=== PATIENT | male | born 1975 | race Caucasian/White ===

== ENCOUNTER 2017-02-20 08:20 | Day surgery (SDC) | payer MEDICAID ==
[2017-02-20] MEDS ORDERED: TETRACAINE 0.5% OPHTH 1 DOSE AFFEYE ONE ×2 (09:33→12:21)
[2017-02-20] MEDS ORDERED: VIGAMOX 0.5% OPHTH 1 DOSE AFFEYE ONE ×5 (09:35→12:50)
[2017-02-20] MEDS ORDERED: NS 500 ML IV 500 ML IV ONE ×2 (09:39→11:18)
[2017-02-20] MEDS ORDERED: PROLENSA OPHTH 1 DOSE AFFEYE ONE (09:47)
[2017-02-20] MEDS ORDERED: VISINE-A OPHTH 1 DOSE AFFEYE ONE (09:49)
[2017-02-20] MEDS ORDERED: MYDRIACIL OPHTH 1 DOSE AFFEYE ONE ×4 (09:50→09:59)
[2017-02-20] MEDS ORDERED: CYCLOGYL 1% OPHTH 1 DOSE OP ONE ×4 (09:50→09:59)
[2017-02-20] MEDS ORDERED: AK-DILATE 2.5% OPHTH 1 DOSE OP ONE ×4 (09:50→09:59)
[2017-02-20] MEDS ORDERED: QUELICIN (OR ANECTINE) ONE (10:28)
[2017-02-20] MEDS ORDERED: SUPRANE IN ONE (10:28)
[2017-02-20] MEDS ORDERED: DIPRIVAN VIAL ONE (10:28)
[2017-02-20] MEDS ORDERED: VERSED ONE (10:28)
[2017-02-20] MEDS ORDERED: BREVIBLOC ONE (10:28)
[2017-02-20] MEDS ORDERED: FENTANYL INJ 100 mcg ONE ×2 (11:15→12:42)
[2017-02-20] MEDS ORDERED: NS 1/2 1000 ML IV 1,000 ML IV ONE ×2 (11:16→11:17)
[2017-02-20] MEDS ORDERED: BETADINE OPHTH SOLN 5% EACHEYE ONE (12:10)
[2017-02-20] MEDS ORDERED: ADRENALINE CHL INJ IJ ONE (12:31)
[2017-02-20] MEDS ORDERED: XYLOCAINE-MPF 1% IJ ONE (12:31)
[2017-02-20] MEDS ORDERED: BSS OPHTH (PLAIN) 500 ML with VANCOMYCIN HCL 500 MG VIAL 25 MG, ADRENALINE CHL INJ 1 MG IR ONE ×3 (12:31)
[2017-02-20] MEDS ORDERED: DUOVISC IO ONE (12:31)
[2017-02-20] MEDS ORDERED: ZOFRAN INJ 4 MG VIAL IVP PRN (12:37)
[2017-02-20] MEDS ORDERED: BENADRYL INJ 50 MG VIAL IVP PRN (12:37)
[2017-02-20] MEDS ORDERED: PHENERGAN INJ 25 MG IVP PRN (12:37)
[2017-02-20] MEDS ORDERED: DILAUDID INJ IVP PRN (12:37)
[2017-02-20] MEDS ORDERED: REGLAN INJ 10 MG VIAL IVP PRN (12:37)
[2017-02-20 14:55] VITALS: BP 113/68
== END 2017-02-20 14:00 | disposition home or self-care (01) ==
LOC: SURG1 08:20
PROVIDERS: ATTEND Ophthalmology
PROC: 08RK3JZ Replacement of Left Lens with Synthetic Substitute, Percutaneous Approach (ICD-10-PCS; principal; 2017-02-20 14:30)
PROC: 08DK3ZZ Extraction of Left Lens, Percutaneous Approach (ICD-10-PCS; principal; 2017-02-20 14:30)
DX: H25.012 Cortical age-related cataract, left eye (principal); H25.12 Age-related nuclear cataract, left eye; H25.042 Posterior subcapsular polar age-related cataract, left eye
CPT/HCPCS: A4217; J0170; J0330; J2250; J3010; J3370; J3490

== ENCOUNTER 2017-02-27 10:40 | Day surgery (SDC) | payer MEDICAID ==
[~2017-02-27 10:40] MED LIST: TETRACAINE 0.5% OPHTH 1 DOSE AFFEYE ONE; VIGAMOX 0.5% OPHTH 1 DOSE AFFEYE ONE
[2017-02-27] MEDS ORDERED: NS 500 ML IV 500 ML IV ONE (10:44)
[2017-02-27] MEDS ORDERED: VIGAMOX 0.5% OPHTH 1 DOSE AFFEYE ONE ×3 (10:45→12:40)
[2017-02-27] MEDS ORDERED: PROLENSA OPHTH 1 DOSE AFFEYE ONE (10:46)
[2017-02-27] MEDS ORDERED: ALPHAGAN-P OPHTH 1 DOSE AFFEYE ONE (10:47)
[2017-02-27] MEDS ORDERED: CYCLOGYL 1% OPHTH 1 DOSE OP ONE ×3 (10:48→10:50)
[2017-02-27] MEDS ORDERED: AK-DILATE 2.5% OPHTH 1 DOSE OP ONE ×3 (10:48→10:50)
[2017-02-27] MEDS ORDERED: MYDRIACIL OPHTH 1 DOSE AFFEYE ONE ×3 (10:48→10:50)
[2017-02-27] MEDS ORDERED: FENTANYL INJ 100 mcg ONE (11:13)
[2017-02-27] MEDS ORDERED: BETADINE OPHTH SOLN 5% EACHEYE ONE (12:18)
[2017-02-27] MEDS ORDERED: TETRACAINE 0.5% OPHTH 1 DOSE AFFEYE ONE ×2 (12:18→12:25)
[2017-02-27] MEDS ORDERED: ADRENALINE CHL INJ IJ ONE (12:25)
[2017-02-27] MEDS ORDERED: DUOVISC IO ONE (12:25)
[2017-02-27] MEDS ORDERED: XYLOCAINE-MPF 1% IJ ONE (12:25)
[2017-02-27] MEDS ORDERED: BSS OPHTH (PLAIN) 500 ML with VANCOMYCIN HCL 500 MG VIAL 25 MG, ADRENALINE CHL INJ 1 MG IR ONE ×3 (12:27)
[2017-02-27] MEDS ORDERED: VISCOAT 0.5 ML IO ONE (12:32)
[2017-02-27] MEDS ORDERED: ZOFRAN INJ 4 MG VIAL IVP PRN (12:55)
[2017-02-27] MEDS ORDERED: BENADRYL INJ 50 MG VIAL IVP PRN (12:55)
[2017-02-27 14:01] VITALS: BP 153/82
[2017-02-27] MEDS ORDERED: DIPRIVAN VIAL ONE (15:35)
[2017-02-27] MEDS ORDERED: QUELICIN (OR ANECTINE) ONE (15:35)
[2017-02-27] MEDS ORDERED: VERSED ONE (15:35)
== END 2017-02-27 14:00 | disposition home or self-care (01) ==
LOC: SURG1 10:40
PROVIDERS: ATTEND Ophthalmology
PROC: 08RJ3JZ Replacement of Right Lens with Synthetic Substitute, Percutaneous Approach (ICD-10-PCS; principal; 2017-02-27 15:45)
PROC: 08DJ3ZZ Extraction of Right Lens, Percutaneous Approach (ICD-10-PCS; principal; 2017-02-27 15:45)
DX: H25.11 Age-related nuclear cataract, right eye (principal); H25.011 Cortical age-related cataract, right eye; H25.041 Posterior subcapsular polar age-related cataract, right eye
CPT/HCPCS: A4217; J0170; J0330; J2250; J3010; J3370; J3490